=== PATIENT | male | born 1965 | race Native Hawaiian/Other Pacific Islander ===

== ENCOUNTER 2020-01-16 11:32 | Inpatient (IN) | payer OTHER ==
[~2020-01-16] VITALS: Ht 170.2 cm; Wt 97.7 kg
[2020-01-16 11:45] VITALS: BP 144/81; TEMP 99.1
[2020-01-16 12:30] VITALS: BP 145/76
[2020-01-16 13:16] LABS: PLATELET COUNT 410 K/uL (142-355)
[2020-01-16 13:19] LABS: POTASSIUM 3.9 mmol/L (3.6-5.2)
[2020-01-16 13:30] VITALS: BP 141/79
[2020-01-16] MEDS ORDERED: ELIQUIS5 MG PO (15:32)
[2020-01-16] MEDS ORDERED: ENTERIC COATED325 MG PO (15:33)
[2020-01-16 15:54] VITALS: BP 142/90; TEMP 98.2; Ht 170.2 cm; Wt 97.7 kg
[2020-01-16 20:00] VITALS: BP 108/60; TEMP 98.4
[2020-01-17] VITALS: BP 116/72; TEMP 98.4
[2020-01-17 04:02] VITALS: BP 105/67; TEMP 97.6
[2020-01-17 06:53] LABS: PLATELET COUNT 326 K/uL (142-355)
[2020-01-17 07:03] LABS: POTASSIUM 4.1 mmol/L (3.6-5.2)
[2020-01-17 08:00] VITALS: BP 108/80; TEMP 97.8
[2020-01-17 12:00] VITALS: BP 121/78; TEMP 98
[2020-01-17 16:00] VITALS: BP 123/89; TEMP 98.1
[2020-01-17 19:41] VITALS: BP 121/78; TEMP 97.6
[2020-01-18] VITALS: BP 116/90; TEMP 97.7
[2020-01-18 04:00] VITALS: BP 124/81; TEMP 98.1
[2020-01-18 06:19] LABS: PLATELET COUNT 327 K/uL (142-355)
[2020-01-18 06:42] LABS: POTASSIUM 4.4 mmol/L (3.6-5.2)
[2020-01-18 08:00] VITALS: BP 120/85; TEMP 98.2
[2020-01-18 12:00] VITALS: BP 146/98; TEMP 97.3
[2020-01-18 16:00] VITALS: BP 150/110; TEMP 97.3
[2020-01-18 20:00] VITALS: BP 142/93; TEMP 98.7
[2020-01-19] VITALS: BP 107/50; BP 161/102; TEMP 97.6; TEMP 97.8
[2020-01-19 04:00] VITALS: BP 139/91; TEMP 97.3
[2020-01-19 05:37] LABS: PLATELET COUNT 284 K/uL (142-355)
[2020-01-19 05:39] LABS: POTASSIUM 4.2 mmol/L (3.6-5.2)
[2020-01-19 08:00] VITALS: BP 145/109; TEMP 97.6
[2020-01-19 12:00] VITALS: BP 167/105; TEMP 97.9
[2020-01-19 16:00] VITALS: BP 171/111; TEMP 97.8
[2020-01-19 20:00] VITALS: BP 170/97; TEMP 97.5
[2020-01-20] VITALS: BP 165/97; TEMP 98.3
[2020-01-20 04:06] VITALS: BP 150/95; TEMP 97.8
[2020-01-20 04:33] LABS: PLATELET COUNT 265 K/uL (142-355)
[2020-01-20 04:51] LABS: POTASSIUM 3.9 mmol/L (3.6-5.2)
[2020-01-20 08:00] VITALS: BP 148/89; TEMP 97.6
[2020-01-20 12:00] VITALS: TEMP 97.5
[2020-01-20 16:00] VITALS: BP 179/126; TEMP 98.3
[2020-01-20 20:16] VITALS: BP 181/107; TEMP 98.1
[2020-01-21] VITALS (7 sets, daily range): BP systolic 142–172; BP diastolic 84–107; TEMP 97.6–98.9
[2020-01-21 05:50] LABS: PLATELET COUNT 265 K/uL (142-355)
[2020-01-21 06:08] LABS: POTASSIUM 3.8 mmol/L (3.6-5.2)
[2020-01-22 04:00] VITALS: BP 140/89; TEMP 98.2
[2020-01-22 06:21] LABS: PLATELET COUNT 264 K/uL (142-355)
[2020-01-22 06:22] LABS: POTASSIUM 3.8 mmol/L (3.6-5.2)
[2020-01-22 08:00] VITALS: BP 129/81; TEMP 97.9
[2020-01-22 12:00] VITALS: BP 151/97; TEMP 98
[2020-01-22 16:00] VITALS: BP 150/99; TEMP 98.4
[2020-01-22 20:00] VITALS: BP 168/102; TEMP 97.9
[2020-01-23] VITALS: BP 145/95; TEMP 98
[2020-01-23 04:00] VITALS: BP 143/90; TEMP 97.9
[2020-01-23 05:56] LABS: PLATELET COUNT 261 K/uL (142-355)
[2020-01-23 06:38] LABS: POTASSIUM 4.2 mmol/L (3.6-5.2)
[2020-01-23 08:00] VITALS: BP 156/98; TEMP 97.9
[2020-01-23 12:00] VITALS: BP 169/118; TEMP 97.8
[2020-01-23 16:00] VITALS: BP 154/104; TEMP 97.9
[2020-01-23] MEDS ORDERED: CITA20TA2 PO (16:56)
[2020-01-23] MEDS ORDERED: CARV25TA PO (16:56)
[2020-01-23] MEDS ORDERED: GABA300C2 PO (16:57)
[2020-01-23] MEDS ORDERED: 904272561 PO (16:59)
== END 2020-01-23 17:50 | disposition home or self-care (01) | DRG 603 ==
LOC: ED 11:32 → MED/SURG 14:02
PROVIDERS: Internal Medicine Endocrinology, Diabetes & Metabolism; ADMIT Emergency Medicine Emergency Medical Services
DX: L03.115 Cellulitis of right lower limb (principal); I82.493 Acute embolism and thrombosis of other specified deep vein of lower extremity, bilateral; I25.10 Atherosclerotic heart disease of native coronary artery without angina pectoris; F41.8 Other specified anxiety disorders
CPT/HCPCS: 36415; 36416; 80048; 80053; 80202; 81000; 83036; 83605; 85027; 85651; 86140; 87040; 94760; 96360; 96365; 96375; 99284; J0360; J1170; J1885; J1956; J2543; J2550; J3370